=== PATIENT | male | born 1945 | race Caucasian/White ===

== ENCOUNTER 2018-04-06 21:08 | Inpatient (IN) | payer MEDICARE ==
[~2018-04-06] VITALS: Ht 177.8 cm; Wt 87.3 kg
[2018-04-06] MEDS ORDERED: LISI-603 PO (21:25)
--- NOTE | 2018-04-06 22:18 | NUR ---
PAGED ARNIE FORBES FOR PSYCH EVAL.
--- NOTE | 2018-04-06 22:45 | NUR ---
Sang Cedillo here to evaluate the pt.
--- NOTE | 2018-04-06 23:45 | NUR ---
Received patient to 2nd floor GPS overflow. at bedside. Pt A&Ox4. States he is here because he's been having thoughts of suicide for the past month. Denies any SI now, denies harm to self or others. States he wanted to check into the hospital to get help. Belongings list completed. Contraband taken home by . Intake forms done. No skin issues noted.
--- NOTE | 2018-04-06 23:48 | NUR ---
Pt. admitted to [facility] , under care of Dr. Brannon/Lisy. Belongs List completed. MRSA swab done. report given to lydia ELISE.
[2018-04-07] MEDS ORDERED: MAGNESIUM HYDROXIDE 30 ML LIQUID UDC PO PRN
[2018-04-07] MEDS ORDERED: ZOLPIDEM 5 MG TABLET PO PRN
[2018-04-07] MEDS ORDERED: MAG HYDROX/AL HYDROX/SIMETH 30 ML LIQUID UDC PO PRN
[2018-04-07 00:13] VITALS: BP 134/70
--- NOTE | 2018-04-07 00:56 | NUR ---
Pt asked for a sleeping pill earlier because he was "feeling comprehensive." However, patient is asleep at this time. Will continue q15 min head checks for first 24 hours.
[2018-04-07 04:00] VITALS: BP 154/63
[2018-04-07] MEDS: LORAZEPAM 0.5 MG TABLET PO PRN (07:00)
--- NOTE | 2018-04-07 08:57 | NUR ---
Seen and evaluated by Dr Brannon
--- NOTE | 2018-04-07 09:05 | NUR ---
Pt noted to be crying and upset. Reassurance provided. Pt stated he would like to take a shower in an hour, TRANSONIC ENGINEER aware and will follow up with him
[2018-04-07 09:15] VITALS: BP 153/66
[2018-04-07] MEDS: FLUOXETINE HCL 20 MG CAPSULE PO SCH (10:59)
[2018-04-07] MEDS: LISINOPRIL 20 MG TABLET PO SCH (11:04)
[2018-04-07] MEDS ORDERED: LISINOPRIL 20 MG TABLET PO SCH (11:30)
[2018-04-07 11:47] VITALS: BP 136/75
--- NOTE | 2018-04-07 13:36 | NUR ---
Pt took a shower and states he feels better, like he can do things. Pt states the ups and downs are hard on him
[2018-04-07 15:45] VITALS: BP 130/64
[2018-04-07 19:00] VITALS: BP 127/68
--- NOTE | 2018-04-07 20:00 | NUR ---
PATIENT IS AWAKE IN AAOX4, DENIES SI OR THOUGHTS OF SELF HARM. NO PAIN OR ACUTE DISTRESS ON ASSESSMENT. SAFETY MEASURES IN PLACE WILL CONTINUE TO MONITOR PATIENT
[2018-04-07] MEDS: QUETIAPINE FUMARATE 25 MG TABLET PO SCH (20:39)
[2018-04-08 04:00] VITALS: BP 143/69
--- NOTE | 2018-04-08 06:15 | NUR ---
PATIENT SLEPT 9 1/2 HOURS ON THIS SHIFT. DENIED ANY THOUGHTS OF HARM TO SELF OR SI. CONTINUES TO FEEL DEPRESSED, ENCOURAGED TO EXPRESS FEELINGS.NO C/O PAIN OR DISTRESS ON THIS SHIFT. SAFETY MEASURES MAINTAINED AT ALL TIMES
--- NOTE | 2018-04-08 07:27 | NUR ---
Received pt awake, alert and oriented times 4. Pt stated he had a good night's sleep. Pt also verbalized that he was concern (job related) and wasn't doing so well this morning. No immediate s/s of SOB, pain or discomfort
--- NOTE | 2018-04-08 08:09 | NUR ---
Transferred care to nurse Rivera
[2018-04-08] MEDS: FLUOXETINE HCL 20 MG CAPSULE PO SCH (08:49)
[2018-04-08] MEDS: LISINOPRIL 20 MG TABLET PO SCH (08:49)
[2018-04-08 08:54] VITALS: BP 154/73
[2018-04-08 11:52] VITALS: BP 146/70
[2018-04-08 15:05] VITALS: BP 133/69
--- NOTE | 2018-04-08 16:55 | NUR ---
patient has continues to express his feelings of stress about work. patient unable to get mind off of work. Patient's took his cell phone - cell phone on belongings checklist checked off as being brought back home.
--- NOTE | 2018-04-08 16:57 | NUR ---
patient showered today. shaved. monitored closely - safety measures implemented throughout shift. Linens changed. monitored [id number] due to SI.
[2018-04-08 20:00] VITALS: BP 144/76
--- NOTE | 2018-04-08 20:00 | NUR ---
PATIENT IS AWAKE IN BED. AAOX4 DENIES PAIN, SI OR ANY THOUGHTS OF HURTING SELF. VERBALIZE BEING DEPRESSED, PATIENT ENCOURAGED TO EXPRESS FEELINGS. SAFETY MEASURES IN PLACE. WILL CLOSE MONITOR PATIENT
[2018-04-08] MEDS: QUETIAPINE FUMARATE 25 MG TABLET PO SCH (20:44)
--- NOTE | 2018-04-09 06:16 | NUR ---
PATIENT SLEPT WELL ON THIS SHIFT, SLEPT 10 HOURS. NO C/O PAIN OR ANY DISTRSS ON THIS SHIFT. CONTINUES TO DENY ANY THOUGHTS OF SELF HARM OR SI. SAFETY MEASURES MAINTAINED AT ALL TIMES. ALL NEEDS MET ON THIS SHIFT
--- NOTE | 2018-04-09 07:39 | NUR ---
Awake, feeling depressed and very anxious. Verbalized feeling overwhelmed and scared and not sleeping well last night. Redirected.
[2018-04-09] MEDS: LORAZEPAM 0.5 MG TABLET PO PRN (08:05)
[2018-04-09] MEDS: FLUOXETINE HCL 20 MG CAPSULE PO SCH (08:05)
[2018-04-09] MEDS: LISINOPRIL 20 MG TABLET PO SCH (08:05)
--- NOTE | 2018-04-09 08:08 | NUR ---
Verbalized to "I feel terrible. I had thoughts of suicidal again" But denies thoughts of hurting himself when asked. Ativan PRN given. at bedside, supportive.
[2018-04-09 11:01] VITALS: BP 155/73
--- NOTE | 2018-04-09 11:56 | NUR ---
Initial DC Plan: Patient currently lives at home with his Elena [[address] [place] [address]; [phone]]. SW will follow up with MD, patient, and patient's family to discuss most appropriate discharge plans. SW will form a safe and proper discharge plan.
[2018-04-09] MEDS ORDERED: LORAZEPAM 0.5 MG TABLET PO PRN (14:45)
--- NOTE | 2018-04-09 14:57 | NUR ---
Dr. Brannon seen patient, discussed plan of care, with new orders
[2018-04-09 15:02] VITALS: BP 128/72
[2018-04-09] MEDS ORDERED: LORAZEPAM 1 MG TABLET PO PRN (15:15)
--- NOTE | 2018-04-09 18:05 | NUR ---
Ambulating with in the hallway
--- NOTE | 2018-04-09 19:47 | NUR ---
AWAKE VISITING WITH . VERBALIZED FEELING MUCH BETTER. DENIES SI/THOUGHTS OF HURTING SELF. NO C/O PAIN OR DISTRESS ON ASSESSMENT. SAFETY MEASURES IN PLACE
[2018-04-09 20:00] VITALS: BP 120/70
[2018-04-09] MEDS: QUETIAPINE FUMARATE 25 MG TABLET PO SCH (20:24)
--- NOTE | 2018-04-10 06:20 | NUR ---
PATIENT SLEPT WELL ON THIS SHIFT, SLEPT 10.5 HOURS.VERBALIZED FEELING POSITIVE AND MORE ENERGETIC THIS A.M. NO C/O PAIN OR ANY DISTRESS ON THIS SHIFT. DENIES SI OR ANY THOUGHTS OF SELF HARM. CONTRACTED TO SAFETY ON THIS SHIFT.SAFETY MAINTAINED AT ALL TIMES
--- NOTE | 2018-04-10 07:50 | NUR ---
Awake, verbalized feeling rested with good sleep. No thoughts of SI. No anxiety. Ambulating with in the hallway.
[2018-04-10] MEDS: LISINOPRIL 20 MG TABLET PO SCH (09:03)
[2018-04-10] MEDS: FLUOXETINE HCL 20 MG CAPSULE PO SCH (09:03)
--- NOTE | 2018-04-10 09:15 | NUR ---
[place] [facility] [place] group activity
--- NOTE | 2018-04-10 12:03 | NUR ---
Feeling very anxious after attending group activity. Ativan po given as ordered, with relief of anxiety
--- NOTE | 2018-04-10 15:00 | NUR ---
Came back from group activity with no anxiety and enjoyed the activity
[2018-04-10 20:00] VITALS: BP 139/65
[2018-04-10] MEDS: QUETIAPINE FUMARATE 25 MG TABLET PO SCH (20:12)
--- NOTE | 2018-04-11 05:26 | NUR ---
Patient slept 11 hours. Patient was cooperative with staff. Denies any S.I. No behavioral issues. Safety and comfort measures maintained t/o shift. Vital signs stable. All meds given as ordered. All needs met.
--- NOTE | 2018-04-11 07:20 | NUR ---
RECEIVED AWAKE ALERT AND VERBALLY RESPONSIVE VERBALISES NEEDS.DENIES PAIN OR DISCOMFORTS AT THIS TIME MADE COMFORTABLE AND WILL CONTINUE TO OBSERVE PATIENT.
[2018-04-11] MEDS: LISINOPRIL 20 MG TABLET PO SCH (08:27)
[2018-04-11] MEDS: FLUOXETINE HCL 20 MG CAPSULE PO SCH (08:27)
--- NOTE | 2018-04-11 11:13 | NUR ---
AT THE BEDSIDE PATIENT IS VERBALISED FEELING DEPRESSED WOTTIED ABOUT HIS BUSINESS AND HOW TO COPE PATIENT REASSURED DR LOPEZ IS WORM SORTER FOR DR ARELLANO PER MENTAL HEALTH AWAITING FOR HIM TO VISIT AND REVIEW PATIENT.
[2018-04-11 11:37] VITALS: BP 148/70
--- NOTE | 2018-04-11 13:00 | NUR ---
PATIENT ESCORTED TO THE ACTIVITY ROOM MENTAL HEALTH FIRST FLOOR TO PARTICIPATE IN THE ACTIVITIES DR LOPEZ WAS THERE AND SEEN PATIENT PATIENT NOTIFIED HIM THAT HE FELF MORE DEPRESSED TODAY BUT DENIES SUICIDAL IDEATION AT THIS TIME
--- NOTE | 2018-04-11 15:14 | NUR ---
PATIENT RETURNED FROM MENTAL HEALTH UNIT STATED WATCHED GOLF RESTING AT THIS TIME
[2018-04-11 16:00] VITALS: BP 155/75
--- NOTE | 2018-04-11 18:00 | NUR ---
RESTING IN ROOM WITH HIS AT HIS BEDSIDE WITH GOOD APPETITE COOPERATIVE AND COMPLIANT WILL CONTINUE TO PROVIDE SAFE AND THERAPEUTIC ENVIRONMENT AT ALL TIMES.
[2018-04-11 19:57] VITALS: BP 142/88
[2018-04-11] MEDS: QUETIAPINE FUMARATE 25 MG TABLET PO SCH (20:19)
--- NOTE | 2018-04-12 05:38 | NUR ---
Patient slept 9 hours. Patient was cooperative with staff. Med compliant. Denies any S.I. No behavioral issues. Patient states "I am able to focus more today". He states "I feel the medication working". Good urine output. BM x 1 yesterday. Safety and comfort measures maintained t/o shift. Vital signs stable. All meds given as ordered. All needs met.
--- NOTE | 2018-04-12 07:25 | NUR ---
PATIENT IS AWAKE ALERT AND ORIENTED WALKING UP AND DOWN THE HALLWAY STATED THAT HE DID NOT FEEL DEPRESSED BUT STILL WORRIED AND AFRAID OF THE UNKNOWN.PATIENT INSTRUCTED TO RELAX AND FOLLOW THE PSYCHIATRIST REGIMEN AND ALLOW THINGS TO FALL INTO PLACE AND HE EXPRESSED UNDERSTANDING.
[2018-04-12] MEDS: LISINOPRIL 20 MG TABLET PO SCH (08:52)
[2018-04-12] MEDS ORDERED: FLUOXETINE HCL 10 MG CAPSULE PO SCH (09:00)
[2018-04-12] MEDS ORDERED: FLUOXETINE HCL 20 MG CAPSULE PO SCH (09:00)
[2018-04-12 11:25] VITALS: BP 145/67
--- NOTE | 2018-04-12 13:17 | NUR ---
PATIENT C/O HEADACHE MEDICATED WITH TYLENOL ORDERED RESTING AT THIS TIME PER THE CARPENTER PROTOTYPE THE NEXT ACTIVITY WILL BE AT 1430 PATIENTS AWARE.
[2018-04-12] MEDS: ACETAMINOPHEN 325 MG TABLET PO PRN (13:19)
--- NOTE | 2018-04-12 14:30 | NUR ---
PATIENT PICKED UP BY W/CHAIR BY THE RECREATIONAL THERAPIST TO MENTAL HEALTH UNIT FOR ACTIVITIES HERE AT THE BEDSIDE STATED WILL STAY IN THE ROOM UNTIL 1500 AND WILL THEN JOIN HIM THERE AT THE MENTAL HEALTH UNIT.
--- NOTE | 2018-04-12 16:00 | NUR ---
PATIENT RETURNED FROM THE RECREATION ACTIVITIES AND STATED THAT HE ENJOYED SOME.
[2018-04-12 16:50] VITALS: BP 145/70
--- NOTE | 2018-04-12 18:00 | NUR ---
RESTING IS STILL HERE AND SUPPORTIVE PATIENT ENCOURAGED TO CONTINUE TO VERBALISE FEELINGS WILL CONTINUE TO PROVIDE SAFE AND THERAPEUTIC ENVIRONMENT AT THIS TIME
[2018-04-12 19:00] VITALS: BP 147/68
[2018-04-12] MEDS: QUETIAPINE FUMARATE 25 MG TABLET PO SCH (20:32)
--- NOTE | 2018-04-13 03:20 | NUR ---
Patient still feeling very down and depressed. Still rates depression around 8-9 on a scale of 1-10. Is asking when his antidepressant medications will start to work. He feels as if they aren't working. Pt recently had a change in Prozac dose. I told pt he can discuss that with his doctors in the morning. Was seen by Dr Sawant last night before bed. Denies suicidal ideation. Doesn't want to take any sleeping medication or Ativan because he doesn't want to become dependent on it since he will not be taking those medications when he's discharged.
[2018-04-13 04:00] VITALS: BP 151/73
--- NOTE | 2018-04-13 06:14 | NUR ---
Patient slept 9 hours.
--- NOTE | 2018-04-13 08:50 | NUR ---
DR ARELLANO HERE AND SEEN PATIENT WITH HIS HERE AT THE BEDSIDE PATIENT VERBALISED TO THE DOCTOR THAT HE FEELS MORE DEPRESSED TODAY WITH NEW ORDERS AND NOTED.
[2018-04-13] MEDS ORDERED: FLUOXETINE HCL 10 MG CAPSULE PO SCH (09:00)
[2018-04-13] MEDS: FLUOXETINE HCL 20 MG CAPSULE PO SCH (09:10)
[2018-04-13] MEDS: LISINOPRIL 20 MG TABLET PO SCH (09:11)
--- NOTE | 2018-04-13 09:35 | NUR ---
PATIENT PICKED UP BY THE MENTAL HEALTH UNIT CHARGE TO FIRST FLOOR FOR RECREATION AND ACTIVITIES.
[2018-04-13 11:05] VITALS: BP 156/71
--- NOTE | 2018-04-13 11:30 | NUR ---
PATIENT RETURNED TO HIS ROOM STATED DID SOME PAINTINGS PROUD OF THE JOB THAT HE DID STATED THAT HIS WILL APPROAVE.
[2018-04-13 15:30] VITALS: BP 160/68
--- NOTE | 2018-04-13 18:00 | NUR ---
RESTING AMBULATORY AT THE BEDSIDE SEEMS TO BE COPING SOME SHOWERED AND SHAVED. WILL CONTINUE TO OBSERVE AND PROVIDE SAFE AND THERAPEUTIC ENVIRONMENT.
[2018-04-13] MEDS ORDERED: QUETIAPINE FUMARATE 25 MG TABLET PO SCH (21:00)
--- NOTE | 2018-04-14 05:26 | NUR ---
Patient slept 8.5 hours. Patient was cooperative with staff. Med compliant. Denies any S.I. No behavioral issues. Patient states "I feel just OK today". Good urine output. Safety and comfort measures maintained t/o shift. Vital signs stable. All meds given as ordered. All needs met.
--- NOTE | 2018-04-14 07:15 | NUR ---
RECEIVED PATIENT AWAKE ALERT AND ORIENTED WALKING UP AND DOWN IN THE HALLWAY STATED FEELS BETTER TODAY DENIES SI/HI COOPERATIVE WITH CARE WILL CONTINUE TO PROVIDE SAFE AND YHERAPEUTIC ENVIRONMENT AT ALL TIMES.
[2018-04-14 08:00] VITALS: BP 146/83
[2018-04-14] MEDS: FLUOXETINE HCL 20 MG CAPSULE PO SCH (08:13)
[2018-04-14] MEDS: LISINOPRIL 20 MG TABLET PO SCH (08:14)
--- NOTE | 2018-04-14 09:44 | NUR ---
PATIENT SEEN AND EXAMINED BY DEYA TIRE DEBEADER WITH NEW ORDERS AND NOTED.
--- NOTE | 2018-04-14 10:00 | NUR ---
ESCORTED DOWN TO MENTAL HEALTH UNIT ON FIRST FLOOR FOR ACTIVITIES WITH THE RECREATIONAL THERAPIST AND VERY EAGER AND INTERESTED TO GO DOWNAND PARTICIPATE.
--- NOTE | 2018-04-14 11:30 | NUR ---
RETURNED BACK AND STATED THAT HE PARTICIPATED MUCH POSSIBLE.
[2018-04-14] MEDS: ACETAMINOPHEN 325 MG TABLET PO PRN (11:56)
[2018-04-14 12:00] VITALS: BP 148/71
[2018-04-14 15:57] VITALS: BP 144/74
--- NOTE | 2018-04-14 17:27 | NUR ---
PATIENT SHOWERED TODAY AND HAS HIS FRIED VISITING HIM IN HIS ROOM SEEMS RELAXED AND CALM AT THIS TIME.
--- NOTE | 2018-04-14 19:20 | NUR ---
Received patient lying in bed. AAOx4. Calm and pleasant. In no acute distress. Denies any pain or SOB. Needs assessed and attended to. Safety measure initiated and call horowitz within reach.
[2018-04-14 20:00] VITALS: BP 135/70
[2018-04-14] MEDS: QUETIAPINE FUMARATE 100 MG TABLET PO SCH (20:20)
[2018-04-14] MEDS ORDERED: QUETIAPINE FUMARATE 25 MG TABLET PO SCH (21:00)
--- NOTE | 2018-04-15 06:06 | NUR ---
AAOx4. No complain of pain or SOB. Denies any suicidal thoughts. Denies any pain or SOB. VS WNL. Safety measure maintained and call horowitz within reach.
[2018-04-15 06:24] LABS: BASOPHILS # (AUTO) 0.1 K/uL (0.0-8.0); BASOPHILS % (AUTO) 0.7 % (0.0-2.0); EOSINOPHILS # (AUTO) 0.1 K/uL (0.0-0.7); EOSINOPHILS % (AUTO) 0.9 % (0.0-7.0); HEMATOCRIT 41.9 % (36.7-47.1); HEMOGLOBIN 13.9 g/dL (12.5-16.3); LYMPHOCYTES # (AUTO) 2.3 K/uL (20.0-40.0); LYMPHOCYTES % (AUTO) 27.3 % (20.5-51.5); MEAN CORPUSCULAR HEMOGLOBIN 28.5 uug (23.8-33.4); MEAN CORPUSCULAR HGB CONC 33 g/dL (32.5-36.3); MEAN CORPUSCULAR VOLUME 85.9 fL (73.0-96.2); MONOCYTES # (AUTO) 0.8 K/uL (2.0-10.0); MONOCYTES % (AUTO) 8.8 % (0.0-11.0); NEUTROPHILS # (AUTO) 5.3 K/uL (1.8-8.9); NEUTROPHILS % (AUTO) 62.3 % (38.5-71.5); PLATELET COUNT (AUTO) 200 K/uL (152-348); RED BLOOD CELL COUNT(AUTO) 4.88 MIL/uL (4.06-5.63); WHITE BLOOD COUNT (AUTO) 8.5 K/uL (3.6-10.2)
[2018-04-15 06:28] LABS: CREATININE 0.9 mg/dL (0.6-1.3); POTASSIUM 4.3 mmol/L (3.5-5.1)
--- NOTE | 2018-04-15 07:00 | NUR ---
Received patient in bed, awake, alert and oriented x4, in no acute distress. Denies chest pain or SOB. Denies SI/HI/Hallucinations. Thought process intact, speech clear. Will continue to monitor
[2018-04-15] MEDS: FLUOXETINE HCL 20 MG CAPSULE PO SCH (08:52)
[2018-04-15] MEDS: LISINOPRIL 20 MG TABLET PO SCH (08:52)
[2018-04-15] MEDS: ACETAMINOPHEN 325 MG TABLET PO PRN (10:35)
[2018-04-15] MEDS ORDERED: CLONIDINE HCL 0.1 MG TABLET PO PRN (10:45)
[2018-04-15 12:08] VITALS: BP 163/74
[2018-04-15 15:30] VITALS: BP 164/72
--- NOTE | 2018-04-15 18:42 | NUR ---
End of shift note: Patient is alert and oriented x4, in no acute distress. No acute change of condition noted. Denies any SI/HI/Hallucination noted. All needs attended and met. Will continue to monitor
--- NOTE | 2018-04-15 19:20 | NUR ---
Received patient sitting n the chair. AAOx4. Calm and pleasant. In no acute distress. Denies any pain or SOB. In good spirit today. Stated he will do some meditation and yoga in his room. Safety measure initiated and call horowitz within reach.
[2018-04-15 19:33] VITALS: BP 151/70
[2018-04-15] MEDS: QUETIAPINE FUMARATE 100 MG TABLET PO SCH (20:12)
[2018-04-16 03:40] VITALS: BP 165/75
--- NOTE | 2018-04-16 06:03 | NUR ---
AAOx4. Reported sleeping well last ngiht. Denies any pain or SOB. Catapres 0.1mg given for BP 165/75. Denies any dizziness or headache. Safety measure maintained and call horowitz within reach.
--- NOTE | 2018-04-16 06:53 | NUR ---
Julio BP , now 148/78. Addendum: 04/16/18 at 0654 by TORIBIO MENDIETA RN BP 148/
[2018-04-16 06:54] VITALS: BP 148/74
[2018-04-16 08:00] VITALS: BP 155/107
[2018-04-16] MEDS: FLUOXETINE HCL 20 MG CAPSULE PO SCH (08:47)
[2018-04-16] MEDS: LISINOPRIL 20 MG TABLET PO SCH (08:48)
[2018-04-16 12:00] VITALS: BP 145/72
[2018-04-16 16:00] VITALS: BP 144/77
--- NOTE | 2018-04-16 18:25 | NUR ---
patient has been having visitors. when patient is by himself patient is preoccupied with walking laps and exercising in his room. patient also reads the newspaper at bedside. and sits with his visitors in his room.
--- NOTE | 2018-04-16 19:20 | NUR ---
Received patient lying in bed. AAOx4. Calm and pleasant. In no acute distress. Denies any pain or SOB. Stated he feels good today and will do some medication in his room. Needs assessed and attended to. Safety measure initiated and call horowitz within reach.
[2018-04-16 19:24] VITALS: BP 148/66
[2018-04-16] MEDS: QUETIAPINE FUMARATE 100 MG TABLET PO SCH (21:01)
[2018-04-17 03:33] VITALS: BP 151/72
--- NOTE | 2018-04-17 06:08 | NUR ---
AAOx4. Slept well last night. Denies any pain or SOB. In no acute distress. Safety measure maintained and call horowitz within reach.
[2018-04-17 08:00] VITALS: BP 166/78
--- NOTE | 2018-04-17 08:10 | NUR ---
DC Note: Patient will be discharged home with his Elena [[address] [place] [address]; [phone]]. Elena will be picking up patient [[phone]]. Patient is aware and agreeable to discharge plans. Patient denies SI and HI. Patient will follow up with his poundmaster Dr. Wright [[address] [facility] [address], [place] [address]; ]. Patient has a psychiatry appointment with Dr. Jorge A Kingsley [[address] [facility] [address], [place] [address]; ] on May 06, 2018. Patient also has a phone appointment with psychologist Dr. Germaine Benitez [[address] [facility] [address], [place] [address]; ] on April 20, 2018. Patient was provided with additional outpatient mental health resources to [facility] , Lynette Oconnell , and the National Suicide Prevention Lifeline .
[2018-04-17 08:30] VITALS: BP 166/78
[2018-04-17] MEDS: LISINOPRIL 20 MG TABLET PO SCH (08:30)
[2018-04-17] MEDS: FLUOXETINE HCL 20 MG CAPSULE PO SCH (08:30)
--- NOTE | 2018-04-17 10:50 | NUR ---
PATIENT IS BEING DISCHARGE TODAY. PAPER WORK IS BEING PREPARED.
== END 2018-04-17 11:09 | disposition home or self-care (01) | DRG 885 ==
LOC: ER 21:15 → GPSOV 23:21
PROVIDERS: ADMIT Psychiatry & Neurology Psychiatry; ATTEND Internal Medicine
DX: F33.2 Major depressive disorder, recurrent severe without psychotic features (principal); F41.9 Anxiety disorder, unspecified; I10 Essential (primary) hypertension; J84.10 Pulmonary fibrosis, unspecified; Z79.899 Other long term (current) drug therapy; F42.9 Obsessive-compulsive disorder, unspecified
CPT/HCPCS: 36415; 71045; 85025; 93005; A4663